=== PATIENT | female | born 1995 | race Caucasian/White ===

== ENCOUNTER 2021-04-28 05:58 | Observation (INO) | payer BC ==
[2021-04-28] MEDS: Lactated Ringers 1,000 ML IV SCH ×3 (07:30→09:09)
[2021-04-28] MEDS ORDERED: Tranexamic Acid 1,000 MG in Sodium Chloride 0.9% 100 ML IV PRN (07:37)
[2021-04-28] MEDS ORDERED: Nalbuphine 10 MG/1 ML Vial IVPUSH PRN (07:37)
[2021-04-28] MEDS ORDERED: Sodium Chloride 0.9% 10 ML Syringe FLUSH PRN (07:37)
[2021-04-28] MEDS ORDERED: Carboprost Tromethamine 250 MCG/1 ML Amp IM PRN (07:37)
[2021-04-28] MEDS ORDERED: Sodium Chloride 0.9% 2.5 ML Syringe FLUSH PRN (07:37)
[2021-04-28] MEDS ORDERED: Butorphanol 1 MG/ML SDV IVPUSH PRN (07:37)
[2021-04-28] MEDS ORDERED: Sodium Chloride 0.9% 10 ML SDV IV PRN (07:37)
[2021-04-28] MEDS ORDERED: Misoprostol 200 MCG Tab PO PRN (07:37)
--- NOTE | 2021-04-28 07:47 | PCM.PREANE ---
Preanesthetic Assessment - Procedure Proposed Procedure: Epidural for planned Version - Anesthesia/Transfusion/Family Hx Anesthesia History: Prior Anesthesia Without Reaction Family History of Anesthesia Reaction: No Transfusion History: No Prior Transfusion(s) - Review of Systems General: No Symptoms Pulmonary: No Symptoms, Other (smoked minimally 6 years ago.) Cardiovascular: No Symptoms, Other (pt denies cardiac pathology) Neurological: No Symptoms (pt denies neurological disorders) Other: Reports: None - Physical Assessment NPO Status Date: 04/28/21 NPO Status Time: 00:00 ASA Class: 2 Mental Status: Alert & Oriented x3 Airway Class: Mallampati = 2 Dentition: Reports: Normal Dentition Thyro-Mental Finger Breadths: 3 Mouth Opening Finger Breadths: 3 ROM/Head Extension: Full Lungs: Clear to Auscultation, Normal Respiratory Effort Cardiovascular: Regular Rate, Regular Rhythm Other: Pt denies complications with , hematologic pathology. - Allergies Allergies/Adverse Reactions: Allergies Allergy/AdvReac Type Severity Reaction Status Date / Time No Known Allergies Allergy Verified 05/10/15 11:44 - Blood Blood Available: No Product(s) Available: None - Anesthesia Plan Pre-Op Medication Ordered: None - Acknowledgements Anesthesia Type Planned: Epidural Pt an Appropriate Candidate for the Planned Anesthesia: Yes Alternatives and Risks of Anesthesia Discussed w Pt/Guardian: Yes Pt/Guardian Understands and Agrees with Anesthesia Plan: Yes Additional Comments: Labs pending at time of pre anesthesia assessment and will be reviewed prior to epidural placement. PreAnesthesia Questionnaire - HOME MEDS Home Medications: Home Meds . [Unable to Verify Home Med List] 05/10/15 [History]
[2021-04-28] MEDS ORDERED: Terbutaline 1 MG/ML SDV SUBCUT ONE (07:48)
[2021-04-28] MEDS ORDERED: Mineral Oil 10 ML Bottle TOP SCH (08:00)
[2021-04-28] MEDS ORDERED: Ropivacaine HCl/PF 200 ML ONE (08:13)
--- NOTE | 2021-04-28 09:18 | PCM.SN.2 ---
Time Documentation - Pre-Procedure Checklist Attending Provider Aware: Yes Chart Reviewed: Yes Consent Signed: Yes Labs Reviewed: Hematocrit, Hemoglobin, Platelet VS/FHR Reviewed: Yes Patient Identification Confirmation Method: Chart Visual, Verbal Patient Pt an Appropriate Candidate for the Planned Anesthesia: Yes Alternatives and Risks of Anesthesia Discussed w Pt/Guardian: Yes - Procedure Procedure Start Date: 04/28/21 Procedure Start Time: 08:[address]: Reports: Blood Pressure, Heart Rate, SPO2 Functional IV: Yes Safety Measures: Reports: Patient Identified, Procedure Verified, Site Verified, Procedure Time Out Patient Position: Reports: Sitting Prep: Reports: Betadine x3 Regional Placement Level: Reports: L3-4 Needle: Reports: Other (17 GA Touy) Parasthesia: Reports: None Fluid Obtained: Reports: None [place]: No Medication(s): 5 ML of 1.5% lidocain test dose given at 0833 with no signs and symptoms of intravascular or intrathecal administration. 4 ML bolus of epidural solution containing 0.2% ropivicaine given. Total Volume Injected (ml): 9 Time Medication Injected: 08:33 Patient Position Post Placement: Reports: Supline/RUTH Post-procedure Pain Level: 0 VS and FHR Monitored in Unit Post Placement: Yes Procedure Comment: Sterile technique used throughout. Mild hypotension noted following bolus dose. 50 mg ephedrine, 200mcg phenylepherine given in devided doses along with 0.2mg robinul.
--- NOTE | 2021-04-28 09:22 | PCM.POSTAN ---
POST ANESTHESIA ASSESSMENT - MENTAL STATUS Mental Status: Alert, Oriented - RESPIRATORY Respiratory Status: Respiratory Rate WNL, Airway Patent, O2 Saturation Stable - CARDIOVASCULAR CV Status: Pulse Rate WNL, Blood Pressure Stable - GASTROINTESTINAL GI Status: No Symptoms - POST OP HYDRATION Hydration Status: Adequate & Stable (VSS at this time.)
--- NOTE | 2021-04-28 09:23 | PCM48HPAN ---
Post Anesthesia Note - EVALUATION WITHIN 48HRS OF ANESTHETIC Vital Signs in Normal Range: Yes Patient Participated in Evaluation: Yes Respiratory Function Stable: Yes Airway Patent: Yes Cardiovascular Function Stable: Yes Hydration Status Stable: Yes Pain Control Satisfactory: Yes Nausea and Vomiting Control Satisfactory: Yes Mental Status Recovered: Yes - COMMENTS/OBSERVATIONS Free Text/Narrative:: Epidural stopped by RN at request of physician
--- NOTE | 2021-04-28 09:29 | PCM.OPNOTE ---
- General Post-Op/Procedure Note Date of Surgery/Procedure: 04/28/21 Operative Procedure(s): External cephalic version Findings: Baby in alejandrina breech presentation, head maternal right. Amniotic fluid index 10cm. Anterior placenta. Successful external cephalic version. heart tones reassuring throughout procedure. Pre Op Diagnosis: Breech presentation Post-Op Diagnosis: Breech presentation Anesthesia Technique: Epidural Primary Surgeon: Patricia Schwartz Secondary Surgeon: Nas Chapman Anesthesia Provider: Smith Palacios Pathology: None EBL in mLs: 0 Complications: None known Condition: Good Free Text/Narrative:: 25 year old G1 at 37w2d with breech presentation presenting for external cephalic version. Growth US this morning with estimated weight of 6lb 2oz, corresponding to the 21st percentile, normal MARIZA and anterior placenta. Discussed risks and benefits of ECV vs. primary section and patient desires to proceed with ECV. Reviewed risk of distress, progression in labor, placenta abruption, ROM with procedure and need for urgent delivery. Consent signed and questions answered. Patient received an epidural for pain management. Shortly after the epidural, she experienced an episode of hypotension which resolved with adminstration of epinephrine. heart tones decreased to 90s during the episode, however, resolved with medication and maternal repositioning. After 10 minutes, we proceeded with the procedure. Bedside US confirmed breech presentation. Baby oil was applied to patient's abdomen. Two attempts were made to rotate baby counterclockwise and the second attempt was successful. FHTs to be monitored for two hours post procedure.
--- NOTE | 2021-04-28 09:56 | US ---
INDICATION: Evaluate presentation, amniotic fluid and growth. COMPARISON: 03/18/2021. TECHNIQUE: Limited transabdominal OB ultrasound. FINDINGS: Again noted is a single live intrauterine . Initial presentation is breech. cardiac activity is appreciated and calculated at 167 BPM. The placenta is anterior. Amniotic fluid volume is within normal limits with the SDP measuring approximately 4.0 cm. - The following biometric data was obtained: BPD 9.1 cm, 37 weeks 0 days. HC 33.1 cm, 37 weeks 5 days. AC 31.0 cm, 35 weeks 0 days. FL 7.1 cm, 36 weeks 4 days. - Composite average ultrasound age is 36 weeks 4 days and MARIA ELENA of 05/22/2021. EFW 2776 g which is the 21st percentile for LMP. - Ultrasound support provided the OB service for version, which was successful. IMPRESSION: 1. Single live intrauterine with a composite average ultrasound age of 36 weeks 4 days and MARIA ELENA of 05/22/2021. 2. Successful version. Dictated by Moody Flores MD @ 04/28/2021 9:54:35 AM (Electronically Signed)
[2021-04-28] MEDS ORDERED: Glycopyrrolate 0.2 MG/ML SDV ONE (10:41)
[2021-04-28] MEDS ORDERED: ePHEDrine 50 MG/ML SDV ONE (10:41)
[2021-04-28] MEDS ORDERED: Sodium Chloride 0.9% 20 ML ONE (10:48)
== END 2021-04-28 12:35 | disposition home or self-care (01) ==
LOC: INTOOBSV 05:58 → MW.OB 05:58
PROVIDERS: ADMIT Obstetrics & Gynecology; ATTEND Obstetrics & Gynecology
DX: O32.1XX0 Maternal care for breech presentation, not applicable or unspecified (principal); Z3A.36 36 weeks gestation of pregnancy
CPT/HCPCS: 36415; 59025; 59412; 76815; 85027; 86850; 86900; 86901; J2370; J2795; J3105; J3490; J7120; 01958

== ENCOUNTER 2021-05-20 05:07 | Inpatient (IN) | payer BC ==
[2021-05-20] MEDS ORDERED: Butorphanol 1 MG/ML SDV IVPUSH PRN (05:26)
[2021-05-20] MEDS ORDERED: Misoprostol 200 MCG Tab PO PRN (05:26)
[2021-05-20] MEDS ORDERED: Ondansetron 4 MG/2 ML SDV IVPUSH PRN (05:26)
[2021-05-20] MEDS ORDERED: Lidocaine 1% 50 ML MDV INJECT PRN (05:26)
[2021-05-20] MEDS ORDERED: Nalbuphine 10 MG/1 ML Vial IVPUSH PRN (05:26)
[2021-05-20] MEDS ORDERED: Sodium Chloride 0.9% 10 ML SDV IV PRN (05:26)
[2021-05-20] MEDS ORDERED: Sodium Chloride 0.9% 2.5 ML Syringe FLUSH PRN (05:26)
[2021-05-20] MEDS ORDERED: Carboprost Tromethamine 250 MCG/1 ML Amp IM PRN (05:26)
[2021-05-20] MEDS ORDERED: Water For Irrigation,Sterile 1,000 ML Container IRR PRN (05:26)
[2021-05-20] MEDS ORDERED: Sodium Chloride 0.9% 10 ML Syringe FLUSH PRN (05:26)
[2021-05-20] MEDS ORDERED: Tranexamic Acid 1,000 MG in Sodium Chloride 0.9% 100 ML IV PRN (05:26)
[2021-05-20] MEDS ORDERED: Methylergonovine 0.2 MG/1 ML Amp IM PRN (05:26)
[2021-05-20] MEDS ORDERED: Oxytocin/0.9 % Sodium Chloride 30 UNIT/500 ML BAG IV SCH ×2 (05:30→09:00)
[2021-05-20] MEDS: Lactated Ringers 1,000 ML IV SCH ×4 (08:24→19:25)
[2021-05-20] MEDS ORDERED: Terbutaline 1 MG/ML SDV SUBCUT PRN (08:54)
[2021-05-20] MEDS ORDERED: ePHEDrine 50 MG/ML SDV IVPUSH PRN (13:19)
--- NOTE | 2021-05-20 13:19 | PCM.PREANE ---
Preanesthetic Assessment - Anesthesia/Transfusion/Family Hx Anesthesia History: Prior Anesthesia Without Reaction Family History of Anesthesia Reaction: No Transfusion History: No Prior Transfusion(s) - Review of Systems General: No Symptoms Pulmonary: No Symptoms, Other (Minimal smoking greater than 6 years ago) Gastrointestinal: No Symptoms Neurological: No Symptoms, Other (Mild scoliosis noted on physical exam) Other: Reports: None (Pt denies hematological or nureological pathology.) - Physical Assessment NPO Status Date: 05/20/21 NPO Status Time: 06:00 Height: 1.65 m Weight: 87.09 kg ASA Class: 2 Mental Status: Alert & Oriented x3 Airway Class: Mallampati = 2 Dentition: Reports: Normal Dentition Thyro-Mental Finger Breadths: 3 Mouth Opening Finger Breadths: 3 ROM/Head Extension: Full Lungs: Clear to Auscultation, Normal Respiratory Effort Cardiovascular: Regular Rate, Regular Rhythm - Lab Values: Laboratory Last Values WBC 11.10 K/uL (4.0-11.0) H 05/20/21 06:20 RBC 4.32 M/uL (4.30-5.90) 05/20/21 06:20 Hgb 12.6 g/dL (12.0-16.0) 05/20/21 06:20 Hct 36.4 % (36.0-46.0) 05/20/21 06:20 MCV 84.3 fL (80.0-98.0) 05/20/21 06:20 MCH 29.2 pg (27.0-32.0) 05/20/21 06:20 MCHC 34.6 g/dL (31.0-37.0) 05/20/21 06:20 RDW Std Deviation 41.4 fl (28.0-62.0) 05/20/21 06:20 RDW Coeff of Markel 14 % (11.0-15.0) 05/20/21 06:20 Plt Count 237 K/uL (150-400) 05/20/21 06:20 MPV 10.90 fL (7.40-12.00) 05/20/21 06:20 Nucleated RBC % 0.0 /100WBC 05/20/21 06:20 Nucleated RBCs # 0 K/uL 05/20/21 06:20 SARS-CoV-2 RNA (ROBER) NEGATIVE (NEGATIVE) 05/20/21 06:25 Blood Type A POSITIVE 05/20/21 06:20 Antibody Screen NEGATIVE 05/20/21 06:20 - Allergies Allergies/Adverse Reactions: Allergies Allergy/AdvReac Type Severity Reaction Status Date / Time No Known Allergies Allergy Verified 05/20/21 05:25 - Blood Blood Available: Yes Product(s) Available: PRBC (Type and Screen) - Anesthesia Plan Pre-Op Medication Ordered: None - Acknowledgements Anesthesia Type Planned: Epidural Pt an Appropriate Candidate for the Planned Anesthesia: Yes Alternatives and Risks of Anesthesia Discussed w Pt/Guardian: Yes Pt/Guardian Understands and Agrees with Anesthesia Plan: Yes PreAnesthesia Questionnaire - Past Health History Medical/Surgical History: Denies 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 [Unable to Verify Home Med List] 05/10/15 [History] - CURRENT (IN HOUSE) MEDS Current Meds: Current Medications Butorphanol Tartrate (Butorphanol 1 Mg/Ml Sdv) 1 mg IVPUSH Q1H PRN PRN Reason: Pain (severe 7-10) Carboprost Tromethamine (Carboprost Tromethamine 250 Mcg/1 Ml Amp) 250 mcg IM ASDIRECTED PRN PRN Reason: Post Hemorrhage Oxytocin/Sodium Chloride (Oxytocin 30 Unit In Ns 0.9% 500 Ml Premix) 30 unit in 500 mls @ 500 mls/hr IV TITRATE TERRENCE Tranexamic Acid 1,000 mg/ (Sodium Chloride) 110 mls @ 660 mls/hr IV ONETIME PRN PRN Reason: Bleeding Lactated Ringer's (Ringers, Lactated) 1,000 mls @ 150 mls/hr IV ASDIRECTED TERRENCE Last Admin: 05/20/21 13:01 Dose: 999 mls/hr Documented by: Oxytocin/Sodium Chloride (Oxytocin 30 Unit In Ns 0.9% 500 Ml Premix) 30 unit in 500 mls @ 2 mls/hr IV TITRATE TERRENCE; Protocol Last Titration: 05/20/21 12:07 Dose: 10 munits/min, 10 mls/hr Documented by: Lidocaine HCl (Lidocaine 1% 50 Ml Mdv) 50 ml INJECT ONETIME PRN PRN Reason: Laceration repair Methylergonovine Maleate (Methylergonovine 0.2 Mg/1 Ml Amp) 0.2 mg IM ASDIRECTED PRN PRN Reason: Post Hemorrhage Misoprostol (Misoprostol 200 Mcg Tab) 200 mcg PO ONETIME PRN PRN Reason: Post Hemorrhage Nalbuphine HCl (Nalbuphine 10 Mg/1 Ml Vial) 10 mg IVPUSH Q1H PRN PRN Reason: Pain (severe 7-10) Ondansetron HCl (Ondansetron 4 Mg/2 Ml Sdv) 4 mg IVPUSH Q4H PRN PRN Reason: Nausea/Vomiting Sodium Chloride (Sodium Chloride 0.9% 10 Ml Syringe) 10 ml FLUSH ASDIRECTED PRN PRN Reason: Keep Vein Open Sodium Chloride (Sodium Chloride 0.9% 2.5 Ml Syringe) 2.5 ml FLUSH ASDIRECTED PRN PRN Reason: Keep Vein Open Sodium Chloride (Sodium Chloride 0.9% 10 Ml Sdv) 10 ml IV ASDIRECTED PRN PRN Reason: IV Use Sterile Water (Water For Irrigation,Sterile 1,000 Ml Container) 1,000 ml IRR ASDIRECTED PRN PRN Reason: delivery Terbutaline Sulfate (Terbutaline 1 Mg/Ml Sdv) 0.25 mg SUBCUT ASDIRECTED PRN PRN Reason: Tacysystole
[2021-05-20] MEDS ORDERED: Ropivacaine 0.2% 2MG/ML 200 ML Bag EPIDUR SCH (13:30)
--- NOTE | 2021-05-20 14:34 | PCM.SN.2 ---
Time Documentation - Pre-Procedure Checklist Attending Provider Aware: Yes Chart Reviewed: Yes Consent Signed: Yes Labs Reviewed: Yes VS/FHR Reviewed: Yes Patient Identification Confirmation Method: Reports: Chart Visual, Verbal Patient Pt an Appropriate Candidate for the Planned Anesthesia: Yes Alternatives and Risks of Anesthesia Discussed w Pt/Guardian: Yes - Procedure Procedure Start Date: 05/20/21 Procedure Start Time: 14:[address]: Reports: Blood Pressure, Heart Rate, SPO2 Functional IV: Yes Safety Measures: Reports: Patient Identified, Procedure Verified, Site Verified, Procedure Time Out Patient Position: Reports: Sitting Prep: Reports: Betadine x3 Local Anesthetic: Reports: Intradermal Wheal w Lidocaine 1% (3ml) Regional Placement Level: Reports: L3-4 Needle: Reports: 17 g Touhy Approach: Reports: Midline Technique: Reports: ONEIL Glass Syringe ONEIL Needle Depth (cm): 6 cm Parasthesia: Reports: None Fluid Obtained: Reports: None Catheter Depth at Skin (cm): 14 cm Test Dose Time: 14:14 Test Dose Medication: Reports: Lidocaine 1.5% w Epinephrine 1:200,000 (5ml) Test Dose Response: Reports: Negative Loading Dose Time: 14:23 Loading Dose Medication: Ropivicaine 0.2% Loading Dose Patient Position: 7 Continuous Infusion Start Time: 14:25 Continuous Infusion Medication: Ropivicaine 0.2% Continuous Infusion Rate: 12 Continuous Infusion PCS Bolus Option: 6 Continuous Infusion Lockout Dose (cc/hr): 15 Patient Position Post Placement: Reports: Supline/RUTH Post-procedure Pain Level: 2 Level Achieved: T4 VS and FHR Monitored in Unit Post Placement: Yes Procedure End Date: 05/20/21 Procedure End Time: 15:03 Procedure Comment: Sterile technique maintained throughout.
--- NOTE | 2021-05-20 14:46 | PCM.POSTAN ---
POST ANESTHESIA ASSESSMENT - MENTAL STATUS Mental Status: Alert, Oriented - RESPIRATORY Respiratory Status: Respiratory Rate WNL, Airway Patent, O2 Saturation Stable - CARDIOVASCULAR CV Status: Pulse Rate WNL, Blood Pressure Stable - GASTROINTESTINAL GI Status: No Symptoms - POST OP HYDRATION Hydration Status: Adequate & Stable
[2021-05-20] MEDS ORDERED: Witch Hazel Medicated Pads 40/Jar TOP PRN (23:31)
[2021-05-20] MEDS ORDERED: Ibuprofen 400 MG Tab PO PRN (23:31)
[2021-05-20] MEDS ORDERED: oxyCODONE 5 MG Tab PO PRN (23:31)
[2021-05-20] MEDS ORDERED: Acetaminophen 500 MG Tab PO PRN ×2 (23:31)
[2021-05-20] MEDS ORDERED: Docusate Sodium 100 MG Cap PO PRN (23:31)
[2021-05-20] MEDS ORDERED: Bisacodyl 10 MG Supp RECTAL PRN (23:31)
[2021-05-20] MEDS ORDERED: Lanolin 100% Cream 7 GM Tube TOP PRN (23:31)
[2021-05-20] MEDS ORDERED: Benzocaine/Menthol 20%-0.5% Spray 78 GM Cannister TOP PRN (23:31)
--- NOTE | 2021-05-20 23:41 | PCM.DEL ---
L & D Note - General Info Date of Service: 05/20/21 Mother's Due Date: 05/17/21 - Delivery Note Labor: Augmented by Oxytocin Delivery Outcome: Livebirth Infant Delivery Method: Spontaneous Vaginal Delivery-Single Presentation: Right Occiput Anterior (ADARSH) Nuchal Cord: Present (x1), Reduced Anesthesia Type: Epidural Amniotic Fluid Description: Meconium Stained Episiotomy Type: None Laceration: None Placenta: Intact, Spontaneous Cord: 3 Vessels Estimated Blood Loss: 150 Resuscitation Needed: No : Bulb Syringe, Warmed Score 1 min: 7 Score 5 min: 9 Delivery Comments (Free Text/Narrative):: Dictation #[id number] - General Info Date of Service: 05/20/21 - Patient Data Weight - Most Recent: 192 lb I&O - Last 24 Hours: Intake & Output 05/20/21 05/20/21 05/21/21 14:59 22:59 06:59 Intake Total 975 1000 Balance 975 1000 Lab Results Last 24 Hours: Laboratory Results - last 24 hr 05/20/21 05/20/21 05/20/21 Range/Units 06:20 06:20 06:25 WBC 11.10 H (4.0-11.0) K/uL RBC 4.32 (4.30-5.90) M/uL Hgb 12.6 (12.0-16.0) g/dL Hct 36.4 (36.0-46.0) % MCV 84.3 (80.0-98.0) fL MCH 29.2 (27.0-32.0) pg MCHC 34.6 (31.0-37.0) g/dL RDW Std Deviation 41.4 (28.0-62.0) fl RDW Coeff of Markel 14 (11.0-15.0) % Plt Count 237 (150-400) K/uL MPV 10.90 (7.40-12.00) fL Nucleated RBC % 0.0 /100WBC Nucleated RBCs # 0 K/uL SARS-CoV-2 RNA (ROBER) NEGATIVE (NEGATIVE) Blood Type A POSITIVE Antibody Screen NEGATIVE Med Orders - Current: Current Medications Butorphanol Tartrate (Butorphanol 1 Mg/Ml Sdv) 1 mg IVPUSH Q1H PRN PRN Reason: Pain (severe 7-10) Carboprost Tromethamine (Carboprost Tromethamine 250 Mcg/1 Ml Amp) 250 mcg IM ASDIRECTED PRN PRN Reason: Post Hemorrhage Ephedrine Sulfate (Ephedrine 50 Mg/Ml Sdv) 10 mg IVPUSH Q1M PRN PRN Reason: Hypotension Oxytocin/Sodium Chloride (Oxytocin 30 Unit In Ns 0.9% 500 Ml Premix) 30 unit in 500 mls @ 500 mls/hr IV TITRATE TERRENCE Tranexamic Acid 1,000 mg/ (Sodium Chloride) 110 mls @ 660 mls/hr IV ONETIME PRN PRN Reason: Bleeding Lactated Ringer's (Ringers, Lactated) 1,000 mls @ 150 mls/hr IV ASDIRECTED TERRENCE Last Admin: 05/20/21 19:25 Dose: 150 mls/hr Documented by: Oxytocin/Sodium Chloride (Oxytocin 30 Unit In Ns 0.9% 500 Ml Premix) 30 unit in 500 mls @ 2 mls/hr IV TITRATE TERRENCE; Protocol Last Titration: 05/20/21 21:35 Dose: 0 munits/min, 0 mls/hr Documented by: Lidocaine HCl (Lidocaine 1% 50 Ml Mdv) 50 ml INJECT ONETIME PRN PRN Reason: Laceration repair Methylergonovine Maleate (Methylergonovine 0.2 Mg/1 Ml Amp) 0.2 mg IM ASDIRECTED PRN PRN Reason: Post Hemorrhage Miscellaneous Medication (Phenylephrine Hcl In 0.9% Nacl 1 Mg/10 Ml Syringe) 0.1 mg IVPUSH Q1M PRN PRN Reason: Hypotension Misoprostol (Misoprostol 200 Mcg Tab) 200 mcg PO ONETIME PRN PRN Reason: Post Hemorrhage Nalbuphine HCl (Nalbuphine 10 Mg/1 Ml Vial) 10 mg IVPUSH Q1H PRN PRN Reason: Pain (severe 7-10) Ondansetron HCl (Ondansetron 4 Mg/2 Ml Sdv) 4 mg IVPUSH Q4H PRN PRN Reason: Nausea/Vomiting Ropivacaine (Ropivacaine 0.2% 2mg/Ml 200 Ml Bag) 400 mg EPIDUR ASDIRECTED TERRENCE Sodium Chloride (Sodium Chloride 0.9% 10 Ml Syringe) 10 ml FLUSH ASDIRECTED PRN PRN Reason: Keep Vein Open Sodium Chloride (Sodium Chloride 0.9% 2.5 Ml Syringe) 2.5 ml FLUSH ASDIRECTED PRN PRN Reason: Keep Vein Open Sodium Chloride (Sodium Chloride 0.9% 10 Ml Sdv) 10 ml IV ASDIRECTED PRN PRN Reason: IV Use Sterile Water (Water For Irrigation,Sterile 1,000 Ml Container) 1,000 ml IRR ASDIRECTED PRN PRN Reason: delivery Terbutaline Sulfate (Terbutaline 1 Mg/Ml Sdv) 0.25 mg SUBCUT ASDIRECTED PRN PRN Reason: Tacysystole - Exam Urinary Catheter Total Time: 0Days 0Hours - Problem List Review Problem List Initiated/Reviewed/Updated: Yes - My Orders Last 24 Hours: My Active Orders 05/20/21 05:15 Patient Status [ADT] Routine 05/20/21 05:26 May Shower [RC] ASDIRECTED Notify Provider [RC] PRN Up ad Kym [RC] ASDIRECTED Vital Signs [RC] PER UNIT ROUTINE Butorphanol [Stadol] 1 mg IVPUSH Q1H PRN Carboprost Tromethamine [Hemabate DS] 250 mcg IM ASDIRECTED PRN Lidocaine 1% [Xylocaine 1%] 50 ml INJECT ONETIME PRN Methylergonovine [Methergine] 0.2 mg IM ASDIRECTED PRN Nalbuphine [Nubain] 10 mg IVPUSH Q1H PRN Ondansetron [Zofran] 4 mg IVPUSH Q4H PRN Sodium Chloride 0.9% [Normal Saline] 10 ml IV ASDIRECTED PRN Sodium Chloride 0.9% [Saline Flush] 10 ml FLUSH ASDIRECTED PRN Sodium Chloride 0.9% [Saline Flush] 2.5 ml FLUSH ASDIRECTED PRN Tranexamic Acid [Cyklokapron] 1,000 mg Sodium Chloride 0.9% [Normal Saline] 100 ml IV ONETIME Water For Irrigation,Sterile [Sterile Water for Irrigation] 1,000 ml IRR ASDIRECTED PRN miSOPROStoL [Cytotec] 200 mcg PO ONETIME PRN Scalp Electrode [WOMSER] Per Unit Routine Peripheral IV Insertion Adult [OM.PC] Routine Resuscitation Status Routine 05/20/21 05:30 Lactated Ringers [Ringers, Lactated] 1,000 ml IV ASDIRECTED Oxytocin/0.9 % Sodium Chloride [Oxytocin 30 Unit in NS 0.9% 500 ML Premix] 30 unit in 500 ml IV TITRATE 05/20/21 06:20 RPR (SYPHILIS SERO) W/ RFLX [REF] Routine 05/20/21 08:54 Bedrest Bathroom Privileges [RC] ASDIRECTED Communication Order [RC] ASDIRECTED Communication Order [RC] ASDIRECTED Notify Provider [RC] PRN Notify Provider [RC] STAT Oxygen Therapy [RC] ASDIRECTED Vital Signs [RC] PER UNIT ROUTINE Terbutaline [Brethine] 0.25 mg SUBCUT ASDIRECTED PRN 05/20/21 09:00 Oxytocin/0.9 % Sodium Chloride [Oxytocin 30 Unit in NS 0.9% 500 ML Premix] 30 unit in 500 ml IV TITRATE Medication Administration Instruction [OM.PC] Q3H 05/20/21 23:31 Patient Status [ADT] Routine May Shower [RC] ASDIRECTED Up ad Kym [RC] ASDIRECTED Vital Signs [RC] PER UNIT ROUTINE Acetaminophen [Tylenol Extra Strength] 1,000 mg PO Q4H PRN Acetaminophen [Tylenol Extra Strength] 500 mg PO Q4H PRN Benzocaine/Menthol [Dermoplast Pain Relief 20%-0.5% [place]] 78 gm TOP ASDIRECTED PRN Docusate Sodium [Colace] 100 mg PO Q12H PRN Ibuprofen [Motrin] 400 mg PO Q4H PRN Ibuprofen [Motrin] 800 mg PO Q6H PRN Lanolin [Lansinoh HPA] See Dose Instructions TOP ASDIRECTED PRN bisacodyL [Dulcolax] 10 mg RECTAL ONETIME PRN oxyCODONE 5 mg PO Q2H PRN witch Michael [Tucks] 1 pad TOP ASDIRECTED PRN Assess Lochia [WOMSER] Per Unit Routine Assess Uterine Involution [WOMSER] Per Unit Routine Peripheral IV Discontinue [OM.PC] Routine 05/21/21 05:11 HEMOGLOBIN/HEMATOCRIT,HH [HEME] Timed - Assessment Assessment:: 25 year old G1 now P1 female s/p - Plan Plan:: Routine cares * Rh positive, GBS negative * Rubella NON-IMMUNE; candidate for MMR * PO pain medications ordered PRN * Regular diet as tolerated * Encourage ambulation and fluid intake as able * Desires to breast feed, nursing assistance PRN Dispo: stable. Admit to floor. Anticipate routine course.
--- NOTE | 2021-05-21 02:02 | OR ---
SURGEON: CARLOS SCHWARTZ MD DATE OF PROCEDURE: 05/20/2021 PROCEDURE: Spontaneous vaginal delivery. PREOPERATIVE DIAGNOSES: 1. Bunch intrauterine at 40 weeks 3 days' gestation. 2. Post-term gestation. 3. Meconium-stained amniotic fluid. POSTOPERATIVE DIAGNOSES: 1. Bunch intrauterine at 40 weeks 3 days' gestation. 2. Post-term gestation. 3. Meconium-stained amniotic fluid. PROCEDURE PERFORMED: Spontaneous vaginal delivery. PRIMARY SURGEON: Carlos Schwartz MD ANESTHESIA: Epidural. COMPLICATIONS: None known. ESTIMATED BLOOD LOSS: 150 mL. FINDINGS: Viable female infant. scores were 7 and 9. weight not yet available at this time. No perineal lacerations noted. INDICATION FOR PROCEDURE: The patient is a 25-year-old, one, who presented to Labor and Delivery with spontaneous rupture of membranes at approximately 0330 am on 05/20/2021, with meconium-stained fluid. She was admitted to Labor and Delivery and received Pitocin for augmentation of labor. Labor progressed slowly throughout the day. She received an epidural shortly prior to 1200. An IUPC was placed at approximately 1630. Labor then progressed with slow elevation of Pitocin. I was notified that the patient was completely dilated at approximately 2140. I instructed the nurse to have the patient labored down for at least 1 hour, presented to Labor and Delivery at approximately 2240. The patient began pushing effort shortly thereafter. DESCRIPTION OF PROCEDURE: The patient pushed with contractions for approximately 40 minutes with good descent. head delivered in occiput anterior position, restituted ROT. Anterior shoulder delivered easily. Nuchal cord noted x1 and loose. This was reduced prior to posterior shoulder delivering. The remaining body was then delivered easily. The baby was then placed on the maternal abdomen and evaluated by the awaiting nursing staff. The baby was pink, crying vigorously, and moving all extremities mainly after the delivery. After approximately 3 minutes, the cord was noted to be no longer pulsating. The umbilical cord was then clamped and cut, and arterial, venous, and cord blood gases were then obtained. The placenta was then expressed intact. Inspection of the cervix, vaginal wall, and the perineum was then performed and no lacerations were noted. Fundal massage was then performed, and the uterine fundus was then noted to be firm and below the umbilicus. EBL was 150 mL. The patient tolerated the procedure well, and mother and are recovering in Labor and Delivery room at this time. ALICIA ROSARIO /[id number]
--- NOTE | 2021-05-21 09:03 | PCM.PNPP ---
- General Info Date of Service: 05/21/21 Subjective Update: Resting in bed, attempting to breastfeed. Working on latching. Pain well controlled. Tolerating regular diet. Ambulating and voiding without difficulty. Lochia decreasing. - General Info Date of Service: 05/21/21 - Patient Data Vital Signs - Most Recent: Last Vital Signs Temp 98.0 F 05/21/21 08:00 Pulse 59 L 05/21/21 08:00 Resp 18 05/21/21 08:00 BP 127/67 05/21/21 08:00 Pulse Ox 95 05/21/21 08:00 Weight - Most Recent: 192 lb I&O - Last 24 Hours: Intake & Output 05/20/21 05/21/21 05/21/21 22:59 06:59 14:59 Intake Total 1000 Balance 1000 Lab Results - Last 24 Hours: Laboratory Results - last 24 hr 05/21/21 Range/Units 05:21 Hgb 11.2 L (12.0-16.0) g/dL Hct 31.9 L (36.0-46.0) % Med Orders - Current: Current Medications Acetaminophen (Acetaminophen 500 Mg Tab) 500 mg PO Q4H PRN PRN Reason: Pain (mild 1-3) Acetaminophen (Acetaminophen 500 Mg Tab) 1,000 mg PO Q4H PRN PRN Reason: Pain (mild 1-3) Benzocaine/Menthol (Benzocaine/Menthol 20%-0.5% [place] 78 Gm Cannister) 78 gm TOP ASDIRECTED PRN PRN Reason: Perineal Comfort Measure Bisacodyl (Bisacodyl 10 Mg Supp) 10 mg RECTAL ONETIME PRN PRN Reason: Constipation Butorphanol Tartrate (Butorphanol 1 Mg/Ml Sdv) 1 mg IVPUSH Q1H PRN PRN Reason: Pain (severe 7-10) Carboprost Tromethamine (Carboprost Tromethamine 250 Mcg/1 Ml Amp) 250 mcg IM ASDIRECTED PRN PRN Reason: Post Hemorrhage Docusate Sodium (Docusate Sodium 100 Mg Cap) 100 mg PO Q12H PRN PRN Reason: Constipation Emollient Ointment (Lanolin 100% Cream 7 Gm Tube) 0 gm TOP ASDIRECTED PRN PRN Reason: Sore Nipples Ephedrine Sulfate (Ephedrine 50 Mg/Ml Sdv) 10 mg IVPUSH Q1M PRN PRN Reason: Hypotension Oxytocin/Sodium Chloride (Oxytocin 30 Unit In Ns 0.9% 500 Ml Premix) 30 unit in 500 mls @ 500 mls/hr IV TITRATE TERRENCE Tranexamic Acid 1,000 mg/ (Sodium Chloride) 110 mls @ 660 mls/hr IV ONETIME PRN PRN Reason: Bleeding Lactated Ringer's (Ringers, Lactated) 1,000 mls @ 150 mls/hr IV ASDIRECTED TERRENCE Last Admin: 05/20/21 19:25 Dose: 150 mls/hr Documented by: Oxytocin/Sodium Chloride (Oxytocin 30 Unit In Ns 0.9% 500 Ml Premix) 30 unit in 500 mls @ 2 mls/hr IV TITRATE TERRENCE; Protocol Last Titration: 05/20/21 21:35 Dose: 0 munits/min, 0 mls/hr Documented by: Ibuprofen (Ibuprofen 400 Mg Tab) 400 mg PO Q4H PRN PRN Reason: Pain (mild 1-3) Ibuprofen (Ibuprofen 800 Mg Tab) 800 mg PO Q6H PRN PRN Reason: Cramping Lidocaine HCl (Lidocaine 1% 50 Ml Mdv) 50 ml INJECT ONETIME PRN PRN Reason: Laceration repair Methylergonovine Maleate (Methylergonovine 0.2 Mg/1 Ml Amp) 0.2 mg IM ASDIRECTED PRN PRN Reason: Post Hemorrhage Miscellaneous Medication (Phenylephrine Hcl In 0.9% Nacl 1 Mg/10 Ml Syringe) 0.1 mg IVPUSH Q1M PRN PRN Reason: Hypotension Misoprostol (Misoprostol 200 Mcg Tab) 200 mcg PO ONETIME PRN PRN Reason: Post Hemorrhage Nalbuphine HCl (Nalbuphine 10 Mg/1 Ml Vial) 10 mg IVPUSH Q1H PRN PRN Reason: Pain (severe 7-10) Ondansetron HCl (Ondansetron 4 Mg/2 Ml Sdv) 4 mg IVPUSH Q4H PRN PRN Reason: Nausea/Vomiting Oxycodone HCl (Oxycodone 5 Mg Tab) 5 mg PO Q2H PRN PRN Reason: Pain (severe 7-10) Ropivacaine (Ropivacaine 0.2% 2mg/Ml 200 Ml Bag) 400 mg EPIDUR ASDIRECTED TERRENCE Sodium Chloride (Sodium Chloride 0.9% 10 Ml Syringe) 10 ml FLUSH ASDIRECTED PRN PRN Reason: Keep Vein Open Sodium Chloride (Sodium Chloride 0.9% 2.5 Ml Syringe) 2.5 ml FLUSH ASDIRECTED PRN PRN Reason: Keep Vein Open Sodium Chloride (Sodium Chloride 0.9% 10 Ml Sdv) 10 ml IV ASDIRECTED PRN PRN Reason: IV Use Sterile Water (Water For Irrigation,Sterile 1,000 Ml Container) 1,000 ml IRR ASDIRECTED PRN PRN Reason: delivery Terbutaline Sulfate (Terbutaline 1 Mg/Ml Sdv) 0.25 mg SUBCUT ASDIRECTED PRN PRN Reason: Tacysystole Witch Michael (Witch Michael Medicated Pads 40/Jar) 1 pad TOP ASDIRECTED PRN PRN Reason: comfort care - Infant Interaction Disposition, : [place] in Room with Family Infant Interaction: Holding Infant Feeding: Difficulty with Latch-on Support Person: - Recovery Exam Fundal Tone: Firm Fundal Level: 1 Fingerbreadths Below Umbilicus Fundal Placement: Midline Lochia Amount: Scant, Small Lochia Color: Rubra/Red Perineum Description: Intact, Minimal Bruising/Swelling Bladder Status: Voiding - Exam General: Alert Lungs: Clear to Auscultation Cardiovascular: Regular Rhythm GI/Abdominal Exam: Soft, Non-Tender Extremities: Normal Range of Motion, Non-Tender, Pedal Edema (trace) Skin: Warm, Dry, Intact Neurological: No New Focal Deficit Psy/Mental Status: Normal Mood - Problem List Review Problem List Initiated/Reviewed/Updated: Yes - My Orders Last 24 Hours: My Active Orders 05/20/21 08:54 Bedrest Bathroom Privileges [RC] ASDIRECTED Communication Order [RC] ASDIRECTED Notify Provider [RC] STAT Terbutaline [Brethine] 0.25 mg SUBCUT ASDIRECTED PRN 05/20/21 09:00 Oxytocin/0.9 % Sodium Chloride [Oxytocin 30 Unit in NS 0.9% 500 ML Premix] 30 unit in 500 ml IV TITRATE Medication Administration Instruction [OM.PC] Q3H 05/20/21 23:31 Patient Status [ADT] Routine May Shower [RC] ASDIRECTED Up ad Kym [RC] ASDIRECTED Acetaminophen [Tylenol Extra Strength] 1,000 mg PO Q4H PRN Acetaminophen [Tylenol Extra Strength] 500 mg PO Q4H PRN Benzocaine/Menthol [Dermoplast Pain Relief 20%-0.5% [place]] 78 gm TOP ASDIRECTED PRN Docusate Sodium [Colace] 100 mg PO Q12H PRN Ibuprofen [Motrin] 400 mg PO Q4H PRN Ibuprofen [Motrin] 800 mg PO Q6H PRN Lanolin [Lansinoh HPA] See Dose Instructions TOP ASDIRECTED PRN bisacodyL [Dulcolax] 10 mg RECTAL ONETIME PRN oxyCODONE 5 mg PO Q2H PRN witch Michael [Tucks] 1 pad TOP ASDIRECTED PRN Assess Lochia [WOMSER] Per Unit Routine Assess Uterine Involution [WOMSER] Per Unit Routine Peripheral IV Discontinue [OM.PC] Routine - Assessment Assessment:: 25 year old PPD1 s/p - Plan Plan:: Routine cares * Rh positive, GBS negative * Rubella NON-IMMUNE; candidate for MMR * PO pain medications ordered PRN * Regular diet as tolerated * Encourage ambulation and fluid intake as able * Desires to breast feed, nursing assistance PRN Dispo: stable. Anticipate discharge tomorrow pending maternal/ status. Continue cares today.
[2021-05-21] MEDS: Ibuprofen 800 MG Tab PO PRN ×2 (09:24→16:10)
[2021-05-22] MEDS: Ibuprofen 800 MG Tab PO PRN (04:34)
[2021-05-22] MEDS ORDERED: Measles, Mumps & Rubella Vaccine 0.5 ML SDV SUBCUT ONE (06:08)
--- NOTE | 2021-05-22 06:53 | PCM.PNPP ---
- General Info Date of Service: 05/22/21 Functional Status: Reports: Pain Controlled, Tolerating Diet, Ambulating, Urinating - Review of Systems General: Reports: No Symptoms HEENT: Reports: No Symptoms Pulmonary: Reports: No Symptoms Cardiovascular: Reports: No Symptoms Gastrointestinal: Reports: No Symptoms Genitourinary: Reports: No Symptoms Musculoskeletal: Reports: No Symptoms Skin: Reports: No Symptoms Neurological: Reports: No Symptoms Psychiatric: Reports: No Symptoms - Patient Data Vital Signs - Most Recent: Last Vital Signs Temp 36.7 C 05/22/21 04:05 Pulse 60 05/22/21 04:05 Resp 18 05/22/21 04:05 BP 131/85 05/22/21 04:05 Pulse Ox 99 05/22/21 04:05 Weight - Most Recent: 192 lb Lab Results - Last 24 Hours: Laboratory Results - last 24 hr 05/20/21 Range/Units 06:20 RPR Non-Reac (Non-Reac) Med Orders - Current: Current Medications Acetaminophen (Acetaminophen 500 Mg Tab) 500 mg PO Q4H PRN PRN Reason: Pain (mild 1-3) Acetaminophen (Acetaminophen 500 Mg Tab) 1,000 mg PO Q4H PRN PRN Reason: Pain (mild 1-3) Benzocaine/Menthol (Benzocaine/Menthol 20%-0.5% [place] 78 Gm Cannister) 78 gm TOP ASDIRECTED PRN PRN Reason: Perineal Comfort Measure Bisacodyl (Bisacodyl 10 Mg Supp) 10 mg RECTAL ONETIME PRN PRN Reason: Constipation Butorphanol Tartrate (Butorphanol 1 Mg/Ml Sdv) 1 mg IVPUSH Q1H PRN PRN Reason: Pain (severe 7-10) Carboprost Tromethamine (Carboprost Tromethamine 250 Mcg/1 Ml Amp) 250 mcg IM ASDIRECTED PRN PRN Reason: Post Hemorrhage Docusate Sodium (Docusate Sodium 100 Mg Cap) 100 mg PO Q12H PRN PRN Reason: Constipation Emollient Ointment (Lanolin 100% Cream 7 Gm Tube) 0 gm TOP ASDIRECTED PRN PRN Reason: Sore Nipples Ephedrine Sulfate (Ephedrine 50 Mg/Ml Sdv) 10 mg IVPUSH Q1M PRN PRN Reason: Hypotension Oxytocin/Sodium Chloride (Oxytocin 30 Unit In Ns 0.9% 500 Ml Premix) 30 unit in 500 mls @ 500 mls/hr IV TITRATE TERRENCE Tranexamic Acid 1,000 mg/ (Sodium Chloride) 110 mls @ 660 mls/hr IV ONETIME PRN PRN Reason: Bleeding Lactated Ringer's (Ringers, Lactated) 1,000 mls @ 150 mls/hr IV ASDIRECTED TERRENCE Last Admin: 05/20/21 19:25 Dose: 150 mls/hr Documented by: Oxytocin/Sodium Chloride (Oxytocin 30 Unit In Ns 0.9% 500 Ml Premix) 30 unit in 500 mls @ 2 mls/hr IV TITRATE TERRENCE; Protocol Last Titration: 05/20/21 21:35 Dose: 0 munits/min, 0 mls/hr Documented by: Ibuprofen (Ibuprofen 400 Mg Tab) 400 mg PO Q4H PRN PRN Reason: Pain (mild 1-3) Ibuprofen (Ibuprofen 800 Mg Tab) 800 mg PO Q6H PRN PRN Reason: Cramping Last Admin: 05/22/21 04:34 Dose: 800 mg Documented by: Lidocaine HCl (Lidocaine 1% 50 Ml Mdv) 50 ml INJECT ONETIME PRN PRN Reason: Laceration repair Methylergonovine Maleate (Methylergonovine 0.2 Mg/1 Ml Amp) 0.2 mg IM ASDIRECTED PRN PRN Reason: Post Hemorrhage Miscellaneous Medication (Phenylephrine Hcl In 0.9% Nacl 1 Mg/10 Ml Syringe) 0.1 mg IVPUSH Q1M PRN PRN Reason: Hypotension Misoprostol (Misoprostol 200 Mcg Tab) 200 mcg PO ONETIME PRN PRN Reason: Post Hemorrhage Nalbuphine HCl (Nalbuphine 10 Mg/1 Ml Vial) 10 mg IVPUSH Q1H PRN PRN Reason: Pain (severe 7-10) Ondansetron HCl (Ondansetron 4 Mg/2 Ml Sdv) 4 mg IVPUSH Q4H PRN PRN Reason: Nausea/Vomiting Oxycodone HCl (Oxycodone 5 Mg Tab) 5 mg PO Q2H PRN PRN Reason: Pain (severe 7-10) Ropivacaine (Ropivacaine 0.2% 2mg/Ml 200 Ml Bag) 400 mg EPIDUR ASDIRECTED TERRENCE Sodium Chloride (Sodium Chloride 0.9% 10 Ml Syringe) 10 ml FLUSH ASDIRECTED PRN PRN Reason: Keep Vein Open Sodium Chloride (Sodium Chloride 0.9% 2.5 Ml Syringe) 2.5 ml FLUSH ASDIRECTED PRN PRN Reason: Keep Vein Open Sodium Chloride (Sodium Chloride 0.9% 10 Ml Sdv) 10 ml IV ASDIRECTED PRN PRN Reason: IV Use Sterile Water (Water For Irrigation,Sterile 1,000 Ml Container) 1,000 ml IRR ASDIRECTED PRN PRN Reason: delivery Terbutaline Sulfate (Terbutaline 1 Mg/Ml Sdv) 0.25 mg SUBCUT ASDIRECTED PRN PRN Reason: Tacysystole Witch Amna (Witch Amna Medicated Pads 40/Jar) 1 pad TOP ASDIRECTED PRN PRN Reason: comfort care Discontinued Medications Measles/Mumps/Rubella Vaccine Live (Measles, Mumps & Rubella Vaccine 0.5 Ml Sdv) 0.5 ml SUBCUT .ONCE ONE Stop: 05/22/21 06:09 - Infant Interaction Infant Disposition, : in Room with Family Interaction: Holding Infant Feeding: Difficulty with Latch-on Support Person: - Recovery Exam Fundal Tone: Firm Fundal Level: 1 Fingerbreadths Below Umbilicus Fundal Placement: Midline Lochia Amount: Scant Lochia Color: Rubra/Red Perineum Description: Intact, Minimal Bruising/Swelling Bladder Status: Voiding - Exam General: Alert, Oriented, Cooperative, No Acute Distress HEENT: Pupils Equal, Pupils Reactive, EOMI Neck: Supple, Trachea Midline, No JVD Lungs: Normal Respiratory Effort GI/Abdominal Exam: Soft, Non-Tender, No Distention Extremities: Normal Inspection, Normal Range of Motion, Non-Tender, No Pedal Edema Skin: Warm, Dry, Intact Neurological: No New Focal Deficit Psy/Mental Status: Alert, Normal Affect, Normal Mood - Problem List Review Problem List Initiated/Reviewed/Updated: Yes - My Orders Last 24 Hours: My Active Orders 05/22/21 06:51 Ready for Discharge [RC] PER UNIT ROUTINE - Assessment Assessment:: 25 year old PPD2 s/p - Plan Plan:: Routine cares * Rh positive, GBS negative * Rubella NON-IMMUNE; MMR * PO pain medications ordered PRN * Regular diet as tolerated * Encourage ambulation and fluid intake as able * Desires to breast feed, nursing assistance PRN Dispo: stable. Anticipate discharge today. Reviewed care instructions.
[2021-05-22 08:49] VITALS: BP 125/74; PULSE 67
--- NOTE | 2021-05-22 12:31 | PCM48HPAN ---
Post Anesthesia Note - EVALUATION WITHIN 48HRS OF ANESTHETIC Vital Signs in Normal Range: Yes Patient Participated in Evaluation: Yes Respiratory Function Stable: Yes Airway Patent: Yes Cardiovascular Function Stable: Yes Hydration Status Stable: Yes Pain Control Satisfactory: Yes Nausea and Vomiting Control Satisfactory: Yes Mental Status Recovered: Yes Vital Signs: Last Vital Signs Temp 36.7 C 05/22/21 08:00 Pulse 67 05/22/21 08:00 Resp 18 05/22/21 08:00 BP 125/74 05/22/21 08:00 Pulse Ox 96 05/22/21 08:00 - COMMENTS/OBSERVATIONS Free Text/Narrative:: Patient visited in room and states that epidural provided adequate analgesia for labor and deliver. Patient denies signs and symptoms of infection or neurological compromise and states to being up walking with no residual weakness.
== END 2021-05-22 13:45 | disposition home or self-care (01) | DRG 560 ==
LOC: MW.OB 05:07 → OBSVTOIN 23:18 → MW.OB 23:18
PROVIDERS: ADMIT Obstetrics & Gynecology; ATTEND Obstetrics & Gynecology
PROC: 10E0XZZ Delivery of Products of Conception, External Approach (ICD-10-PCS; principal; 2021-05-20)
PROC: 3E0R3BZ Introduction of Anesthetic Agent into Spinal Canal, Percutaneous Approach (ICD-10-PCS; 2021-05-20)
DX: O48.0 Post-term pregnancy (principal); Z37.0 Single live birth; O77.0 Labor and delivery complicated by meconium in amniotic fluid; O69.81X0 Labor and delivery complicated by cord around neck, without compression, not applicable or unspecified; Z3A.40 40 weeks gestation of pregnancy
CPT/HCPCS: 01967; 36415; 51702; 59025; 59409; 85014; 85018; 85027; 86592; 86850; 86900; 86901; A9270-GY; J2590; J7120; U0002

== ENCOUNTER 2022-11-16 19:17 | Emergency (ER) | payer BC ==
[2022-11-16] MEDS ORDERED: Sodium Chloride 0.9% 10 ML Syringe FLUSH PRN ×2 (19:46)
[2022-11-16] MEDS ORDERED: Sodium Chloride 0.9% 1,000 ML IV ONE (19:46)
[2022-11-16] MEDS ORDERED: Sodium Chloride 0.9% 2.5 ML Syringe FLUSH PRN ×2 (19:46)
[2022-11-16 21:47] LABS: CARBON DIOXIDE,CO2 22.1 mmol/L (21.0-32.0); POTASSIUM,K 3.5 mmol/L (3.5-5.1)
[2022-11-16] MEDS ORDERED: Cephalexin 500 MG Cap PO ONE (21:47)
[2022-11-16 22:28] VITALS: BP 113/73; PULSE 70
== END 2022-11-16 22:19 | disposition home or self-care (01) ==
LOC: MW.ED 19:17
DX: O20.0 Threatened abortion (principal); O23.12 Infections of bladder in pregnancy, second trimester; N30.90 Cystitis, unspecified without hematuria; Z3A.14 14 weeks gestation of pregnancy
CPT/HCPCS: 36415; 76815; 80053; 81001; 84702; 85025; 85610; 86900; 86901; 99284; A9270; J3490; J7030

== ENCOUNTER 2023-05-13 02:02 | Inpatient (IN) | payer BC ==
[2023-05-13] MEDS ORDERED: Sodium Chloride 0.9% 20 ML SDV IV PRN (02:19)
[2023-05-13] MEDS ORDERED: Carboprost Tromethamine 250 MCG/1 mL Vial IM PRN (02:19)
[2023-05-13] MEDS ORDERED: Sodium Chloride 0.9% 2.5 ML Syringe FLUSH PRN (02:19)
[2023-05-13] MEDS ORDERED: Methylergonovine 0.2 MG/1 ML Amp IM PRN (02:19)
[2023-05-13] MEDS ORDERED: Sodium Chloride 0.9% 10 ML Syringe FLUSH PRN (02:19)
[2023-05-13] MEDS ORDERED: Ondansetron 4 MG/2 ML SDV IVPUSH PRN (02:19)
[2023-05-13] MEDS ORDERED: Misoprostol 200 MCG Tab PO PRN (02:19)
[2023-05-13] MEDS ORDERED: Lidocaine 1% 50 ML MDV INJECT PRN (02:19)
[2023-05-13] MEDS ORDERED: Butorphanol 1 MG/ML SDV IVPUSH PRN (02:19)
[2023-05-13] MEDS ORDERED: Tranexamic Acid IN NACL,ISO-OS 1,000 MG in Premix Bag 1 BAG IV PRN ×2 (02:19)
[2023-05-13] MEDS ORDERED: Water For Irrigation,Sterile 1,000 ML Container IRR PRN (02:19)
[2023-05-13] MEDS ORDERED: Oxytocin/0.9 % Sodium Chloride 30 UNIT/500 ML BAG IV SCH (02:30)
[2023-05-13] MEDS ORDERED: Lactated Ringers 1,000 ML IV SCH (02:30)
[2023-05-13 02:37] LABS: HEMOGLOBIN 12.9 g/dL (12.0-16.0); MEAN CORPUSCULAR HEMOGLOBIN 29.9 pg (28.0-32.0); MEAN CORPUSCULAR HGB CONC 35.8 g/dL (32.0-36.0); MEAN CORPUSCULAR VOLUME 83.3 fL (83.0-99.0); MEAN PLATELET VOLUME 10.8 fL (9.4-12.3); PLATELET COUNT,PLT 220 K/uL (150-400); RED BLOOD CELL COUNT 4.32 M/uL (4.10-5.30); WHITE BLOOD CELL COUNT,WBC 14.54 K/uL (3.9-11.3)
[2023-05-13] MEDS ORDERED: Phenylephrine HCl 0.5 MG/5 ML AMP ONE (02:43)
[2023-05-13] MEDS ORDERED: Ropivacaine/PF 400 MG/200 ML PCA ONE (02:43)
[2023-05-13] MEDS ORDERED: Dexmedetomidine 200 MCG/2 ML SDV ONE (02:43)
[2023-05-13] MEDS ORDERED: ePHEDrine 50 MG/ML SDV IVPUSH PRN ×2 (02:56)
[2023-05-13] MEDS ORDERED: Phenylephrine HCl 0.5 MG/5 ML AMP IVPUSH PRN (02:56)
[2023-05-13] MEDS ORDERED: Ropivacaine HCl/PF 400 MG in Premix Bag 1 BAG EPIDUR SCH (03:00)
[2023-05-13] MEDS ORDERED: Benzocaine/Menthol 20%-0.5% Spray 78 GM Cannister TOP PRN (03:35)
[2023-05-13] MEDS ORDERED: Simethicone 80 MG Tab.Chew PO PRN (03:35)
[2023-05-13] MEDS ORDERED: Witch Hazel Medicated Pads 40/Jar TOP PRN (03:35)
[2023-05-13] MEDS ORDERED: Acetaminophen 500 MG Tab PO PRN (03:35)
[2023-05-13] MEDS ORDERED: Famotidine 20 MG Tab PO PRN (03:35)
[2023-05-13] MEDS ORDERED: Bisacodyl 10 MG Supp RECTAL PRN (03:35)
[2023-05-13] MEDS ORDERED: Lanolin 100% Cream 7 GM Tube TOP PRN (03:35)
[2023-05-13] MEDS: Acetaminophen 500 MG Tab PO PRN ×3 (07:35→21:18)
[2023-05-13] MEDS: Docusate Sodium 100 MG Cap PO PRN (10:49)
[2023-05-13] MEDS: Ibuprofen 800 MG Tab PO PRN ×2 (10:49→17:00)
[2023-05-14] MEDS: Ibuprofen 800 MG Tab PO PRN ×2 (02:30→11:54)
[2023-05-14 05:03] LABS: BASOPHILS ABSOLUTE AUTO 0.04 K/uL (0.00-0.20); BASOPHILS PERCENT AUTO 0.3 % (0.0-1.0); EOSINOPHILS ABSOLUTE AUTO 0.09 K/uL (0.00-0.45); EOSINOPHILS PERCENT AUTO 0.8 % (0.0-6.0); HEMATOCRIT 31.4 % (37.0-47.0); HEMOGLOBIN 11.2 g/dL (12.0-16.0); IMMATURE GRAN ABSOLUTE AUTO 0.15 K/uL (0.00-0.05); IMMATURE GRAN PERCENT AUTO 1.3 % (0.0-0.4); LYMPHOCYTES ABSOLUTE AUTO 1.88 K/uL (1.00-4.80); LYMPHOCYTES PERCENT AUTO 15.8 % (24.0-44.0); MEAN CORPUSCULAR HEMOGLOBIN 30.4 pg (28.0-32.0); MEAN CORPUSCULAR HGB CONC 35.7 g/dL (32.0-36.0); MEAN CORPUSCULAR VOLUME 85.1 fL (83.0-99.0); MEAN PLATELET VOLUME 10.7 fL (9.4-12.3); MONOCYTES ABSOLUTE AUTO 0.66 K/uL (0.00-0.80); MONOCYTES PERCENT AUTO 5.5 % (0.0-8.0); NEUTROPHILS ABSOLUTE AUTO 9.08 K/uL (1.80-7.70); NEUTROPHILS PERCENT AUTO 76.3 % (41.0-71.0); PLATELET COUNT,PLT 167 K/uL (150-400); RED BLOOD CELL COUNT 3.69 M/uL (4.10-5.30)
[2023-05-14] MEDS: Acetaminophen 500 MG Tab PO PRN (08:34)
[2023-05-14] MEDS: Docusate Sodium 100 MG Cap PO PRN (08:36)
[2023-05-14 09:03] VITALS: BP 130/68; PULSE 64
== END 2023-05-14 13:15 | disposition home or self-care (01) | DRG 560 ==
LOC: MW.OBCHECK 02:02 → MW.OB 02:03 → MW.OBCHECK 02:19 → OBSVTOIN 05:30 → MW.OB 09:29
PROVIDERS: ADMIT Obstetrics & Gynecology; ATTEND Obstetrics & Gynecology
PROC: 10E0XZZ Delivery of Products of Conception, External Approach (ICD-10-PCS; principal; 2023-05-13)
PROC: 10907ZC Drainage of Amniotic Fluid, Therapeutic from Products of Conception, Via Natural or Artificial Opening (ICD-10-PCS; 2023-05-13)
PROC: 3E0R3BZ Introduction of Anesthetic Agent into Spinal Canal, Percutaneous Approach (ICD-10-PCS; 2023-05-13)
PROC: 00HU33Z Insertion of Infusion Device into Spinal Canal, Percutaneous Approach (ICD-10-PCS; 2023-05-13)
DX: O69.81X0 Labor and delivery complicated by cord around neck, without compression, not applicable or unspecified (principal); Z37.0 Single live birth; O90.81 Anemia of the puerperium; D62 Acute posthemorrhagic anemia; Z3A.39 39 weeks gestation of pregnancy
CPT/HCPCS: 36415; 59025; 59409; 85025; 85027; 86592; 86850; 86900; 86901; A9270-GY; J2371; J2590; J2795; J3490; J7120